=== PATIENT | female | born 1990 | race Caucasian/White ===

== ENCOUNTER → 2018-03-28 16:32 | Outpatient (CLI) | payer BC, SELFPAY ==
[2018-03-28 11:03] VITALS: BMI 51.2
[2018-03-31 13:12] LABS: HPV Reflexed? NOT INDICATED
== END ==
PROVIDERS: Family Provider Family Medicine; PCP Family Medicine; Referring Provider Obstetrics & Gynecology; Visit Provider Obstetrics & Gynecology
DX: Z12.4 Encounter for screening for malignant neoplasm of cervix (principal)
CPT/HCPCS: 87624; 88175; G0145

== ENCOUNTER → 2019-04-05 | Outpatient (CLI) | payer BC, SELFPAY ==
[2019-04-03 09:20] VITALS: BMI 51.2
[2019-04-05 10:27] LABS: Cholesterol 144 mg/dL (200); Glucose 83 mg/dL (74-106); High Density Lipoprotein 50 mg/dL; Triglycerides 71 mg/dL; Very Low Density Lipoprotein 14 mg/dL (5-40)
[2019-04-05 10:35] LABS: Vitamin D,25 Hydroxy 26.3 ng/mL (29.95-100.01)
== END | disposition home or self-care (01) ==
LOC: PAVLAB 09:10
PROVIDERS: PCP Family Medicine; Visit Provider Obstetrics & Gynecology
DX: Z13.1 Encounter for screening for diabetes mellitus (principal); Z13.21 Encounter for screening for nutritional disorder; Z13.220 Encounter for screening for lipoid disorders
CPT/HCPCS: 36415; 80061; 82306; 82947

== ENCOUNTER → 2019-08-26 | Outpatient (CLI) | payer BC, SELFPAY ==
[2019-04-03 09:20] VITALS: BMI 51.2
[2019-08-26 08:43] LABS: hCG Titer Quant., Serum < 1 mIU/mL (1-3)
== END | disposition home or self-care (01) ==
LOC: PAVLAB 08:13
PROVIDERS: PCP Family Medicine; Referring Provider Obstetrics & Gynecology; Visit Provider Obstetrics & Gynecology
DX: N92.6 Irregular menstruation, unspecified (principal)
CPT/HCPCS: 36415; 84702

== ENCOUNTER → 2020-04-17 07:59 | Outpatient (CLI) | payer BC, SELFPAY ==
[2020-04-16 11:05] VITALS: BMI 49.8
[2020-04-17 09:29] LABS: Cholesterol 147 mg/dL (200); Glucose 91 mg/dL (74-106); High Density Lipoprotein 58 mg/dL; Thyroid Stim Hormone (TSH) 1.12 uIU/mL (0.358-3.74); Triglycerides 75 mg/dL; Very Low Density Lipoprotein 15 mg/dL (5-40)
== END ==
PROVIDERS: PCP Family Medicine; Referring Provider Obstetrics & Gynecology; Visit Provider Obstetrics & Gynecology
DX: Z13.1 Encounter for screening for diabetes mellitus (principal); Z13.29 Encounter for screening for other suspected endocrine disorder; Z13.220 Encounter for screening for lipoid disorders
CPT/HCPCS: 36415; 80061; 82947; 84443

== ENCOUNTER → 2020-04-22 11:35 | Outpatient (CLI) | payer BC, SELFPAY ==
[2020-04-16 11:05] VITALS: BMI 49.8
[2020-04-22 16:12] LABS: Anion Gap 11 (5-15); BUN 21 mg/dL (7-18); BUN/Creat Ratio 40.9 RATIO (10-20); Chloride 104 mmol/L (98-107); Creatinine, Serum 0.51 mg/dL (0.55-1.02); EST Glomerular Filtration Rate 148 mL/min (>60); Est Glom Filt Rate - Afr Amer 179 mL/min (>60); Glucose 75 mg/dL (74-106); Sodium Level 139 mmol/L (136-145)
== END ==
PROVIDERS: PCP Family Medicine; Referring Provider Family Medicine; Visit Provider Family Medicine
DX: E03.0 Congenital hypothyroidism with diffuse goiter (principal)
CPT/HCPCS: 36415; 80048

== ENCOUNTER → 2020-06-08 10:14 | Outpatient (CLI) | payer BC, SELFPAY ==
[2020-04-16 11:05] VITALS: BMI 49.8
--- NOTE | 2020-06-08 10:30 | CT_ITS ---
STUDY: CT ABDOMEN AND PELVIS WITH CONTRAST REASON FOR EXAM: Female, 29 years old. ABD PAIN IN FEMALE -- 5 day history of ABD PAIN,ACUTE,NONLOCALIZED. Diarrhea. RADIATION DOSAGE (If Supplied By Facility): CTDIvol = ( 16.94 ) mGy, DLP = ( 1221.10 ) mGycm TECHNIQUE: Transaxial images were obtained from the dome of the diaphragm to the symphysis pubis with oral contrast. Oral and amp;amp; IV Gastrografin and amp;amp; 100mL Isovue-300 was administered. Sagittal and coronal images were reconstructed. Individualized dose optimization techniques were used for this CT. COMPARISON: None. FINDINGS: The visualized lung bases are unremarkable. The visualized portions of the heart are within normal limits. Normal liver. Normal gallbladder and extrahepatic biliary system. Normal spleen. Normal pancreas. Normal bilateral adrenal glands. Normal right kidney. Normal left kidney. Normal visualized stomach. There is thickening of the mucosa of the terminal ileum with increased markings in the surrounding peritoneal fat. Inflammatory bowel disease such as Crohn''s disease should be ruled out. Scattered small benign-appearing lymph nodes are seen in the mesentery in the right lower quadrant suggestive of mesenteric adenitis. Moderate amount of fecal material is seen in the ascending colon. The appendix is visualized and appears normal. Normal abdominal aorta. Normal inferior vena cava. Normal retroperitoneum. Normal urinary bladder. Normal abdominal wall. Normal osseous structures. CT/Abdomen/Pelvis WITH Contrast IMPRESSION: Thickening of the terminal ileum with increased markings in the surrounding peritoneal fat suggestive of a terminal ileitis. Moderate amount of fecal material is seen in the ascending colon. Electronically Signed: Sterling Rivera MD at 13:12 EDT , Service support ,
[2020-06-08 10:52] LABS: Absolute Lymphocyte Count 1.92 X10^3/uL (0.83-4.51); Absolute Neutrophil Count 2.9 X10^3/uL (2.0-7.7); Basophil# 0.05 X10^3/uL; Basophil% 0.9 % (0-1); Eosinophil# 0.07 X10^3/uL; Eosinophils% 1.3 % (0-5); Hematocrit 44.2 % (37-47); Hemoglobin 14.4 g/dL (12.0-15.0); Lymphocyte # 1.92 X10^3/ul (4.0); Lymphocyte % 34.8 % (19-41); Mean Corp Hgb Conc 32.6 g/dL (32-36); Mean Corpuscular Hgb 28.9 pg (27.0-32.0); Mean Corpuscular Volume 88.6 fL (81-99); Mean Platelet Vol. 10.5 fl (6.2-12.0); Monocyte# 0.52 X10^3/uL; Monocyte% 9.4 % (0-10); NRBC Flagged by Analyzer 0 % (0-5); Neutrophil # 2.94 X10^3/uL (2.7-7.7); Neutrophil % 53.4 % (47-70); Platelet Count 182 K/mm3 (150-450); RBC Distribution Width CV 12.8 % (11.6-14.6); RBC Distribution Width SD 41.8 fl (35.1-43.9); Red Blood Count 4.99 M/mm3 (4.2-5.4); White Blood Count 5.5 K/mm3 (4.4-11.0)
== END ==
PROVIDERS: PCP Family Medicine; Referring Provider Family Medicine; Visit Provider Family Medicine
DX: R10.9 Unspecified abdominal pain (principal)
CPT/HCPCS: 36415; 74177; 85025; Q9967

== ENCOUNTER 2021-04-21 16:19 | Outpatient (CLI) | payer BC, SELFPAY ==
[2021-04-28 14:08] LABS: HPV APTIMA, High Risk Negative (Negative)
== END 2021-04-21 23:59 | disposition home or self-care (01) ==
LOC: LAB 16:21
PROVIDERS: PCP Family Medicine; Visit Provider Obstetrics & Gynecology
DX: Z12.4 Encounter for screening for malignant neoplasm of cervix (principal)
CPT/HCPCS: 87624; 88175; G0145